=== PATIENT | male | born 1960 | race Caucasian/White ===

== ENCOUNTER 2018-05-23 12:00 | Day surgery (SDC) | payer OTHER ==
[2018-05-23] MEDS ORDERED: PROPOFOL 20 ML ×2 (14:07→14:30)
== END 2018-05-23 15:08 | disposition home or self-care (01) ==
LOC: GIL 12:00
DX: Z12.11 Encounter for screening for malignant neoplasm of colon (principal); K64.8 Other hemorrhoids
CPT/HCPCS: 45378